=== PATIENT | male | born 1960 | race Caucasian/White ===

== ENCOUNTER 2016-06-24 09:08 | Inpatient (IN) | payer OTHER ==
[~2016-06-24] VITALS: Ht 185.4 cm; Wt 130.2 kg
[~2016-06-24 09:08] MED LIST: COLACE100 M1 PO; DILAUDID2 M1 PO; ELIQUIS2.5 MG PO; GLUCOPHAGE850 MG PO; IMITREX50 MG PO; LANTUS SOLOS100 U/ML SUBQ; LYRICA25 MG PO; METFORMIN HCL850 MG PO; METOCLOPRAMIDE10 M3 PO; MORPHINE SULFAT30 M1 PO; NEURONTIN100 M1 PO; NORCO 10/325 MG1 TAB PO; NOVOLIN N100 U/ML SUBQ; NOVOLOG100 U/ML SUBQ; OXYCONTIN CR10 MG PO; PHENOBARBITAL100 M1 PO; PREDNISONE10 MG PO; PROAIR HFA0.09 MG/Ac IH; REGLAN5 MG PO; XARELTO10 MG PO; XARELTO15 MG PO; ZITHROMAX250 MG PO
[2016-06-24 09:12] VITALS: BP 132/71
--- NOTE | 2016-06-24 09:15 | NUR ---
PT W/C TO BED 6.
--- NOTE | 2016-06-24 09:50 | NUR ---
55/M HERE FOR VOMITING X1 MONTH WITH DIARRHEA. C/O BACK AND ABD PAIN. BOWEL SOUNDS PRESENT. ABD APPEARS ROUND AND SOFT. URINE CUP PROVIDED FOR SAMPLE IF PT NEEDS TO VOID.
--- NOTE | 2016-06-24 09:57 | NUR ---
Patient being evaluated by physician at bedside.
--- NOTE | 2016-06-24 10:00 | NUR ---
55/M BIB SELF VIA MOTOR WHEELCHAIR FOR VOMITING X1 MONTH WITH DIARRHEA. C/O CHRONIC BACK AND SEVERE ABD PAIN. BOWEL SOUNDS FAINT BUT PRESENT. ABD ROUND, FIRM AND TENDER. SOB NOTED WHEN PAIN ARISES.
[2016-06-24] MEDS ORDERED: NACL 0.9% 1,000 ML IV SCH (10:05)
[2016-06-24] MEDS ORDERED: FAMOTIDINE 20 MG/2 ML VIAL IVP ONE (10:05)
[2016-06-24] MEDS ORDERED: ONDANSETRON 4 MG/2 ML VIAL IVP ONE (10:05)
[2016-06-24] MEDS ORDERED: MORPHINE SULFATE 2 MG/ML SYR IVP ONE (10:05)
--- NOTE | 2016-06-24 10:30 | NUR ---
LAB AT BEDSIDE.
--- NOTE | 2016-06-24 11:00 | NUR ---
PT TAKEN TO RADIOLOGY.
--- NOTE | 2016-06-24 11:05 | NUR ---
URINE CUP GIVEN TO PT FOR SAMPLE.
--- NOTE | 2016-06-24 11:08 | NUR ---
PT BACK FROM CT.
--- NOTE | 2016-06-24 11:19 | NUR ---
PT IN V-TACH [id number] AND CONVERTS BACK TO NSR. PT ASYMTOMATIC. PT CRYING IN PAIN AT THE TIME. DR. COLE MADE AWARE.
--- NOTE | 2016-06-24 11:24 | NUR ---
PT IN V-TACH X3SECS AND CONVERTS BACK TO NSR. PT ASYMTOMATIC. DR. COLE MADE AWARE.
--- NOTE | 2016-06-24 11:29 | NUR ---
PT IN V-TACH X3SECS AND CONVERTS BACK TO NSR. PT ASYMTOMATIC. DR. COLE MADE AWARE.
[2016-06-24] MEDS ORDERED: PHENYTOIN 1,000 MG in NACL 0.9% 100 ML IV ONE (12:05)
--- NOTE | 2016-06-24 12:20 | NUR ---
PT TRANSFERRED TO ED BED 4 FOR CLOSER OBSERVATION
[2016-06-24] MEDS ORDERED: PHENYTOIN 1,000 MG in NACL 0.9% 100 ML IV SCH (12:46)
[2016-06-24] MEDS ORDERED: PHENYTOIN 250 MG/5 ML VIAL IV ONE (12:47)
[2016-06-24] MEDS ORDERED: ACETAMINOPHEN 325 MG TAB PO PRN (13:10)
[2016-06-24] MEDS ORDERED: HYDROcodone/APAP 5/325 MG 1 TAB TAB PO PRN (13:10)
--- NOTE | 2016-06-24 13:16 | NUR ---
CALLED [facility]ST, SPOKE TO MT, STS RECEIVING RN RERE WITH CALL ME BACK WITHIN 5-10MINS.
--- NOTE | 2016-06-24 13:30 | NUR ---
PT BACK CLEAR. NO WOUNDS NOTED. Patient will be admitted to care of DR. ACOSTA. Admited to [facility]. Will go to room 116-A. Belongings list completed. Report to MAEVE JERNIGAN.
[2016-06-24] MEDS ORDERED: DEXTROSE 50% 50 ML SYR IVP PRN (13:50)
[2016-06-24 14:00] VITALS: BP 110/69
--- NOTE | 2016-06-24 14:00 | NUR ---
PT ADMITTED FROM ER, AWAKE ALERT AND ORIENTED X4. BREATHING EVENLY AND UNLABORED, WITH O2 AT 2L/MIN VIA NC. NO SIGNS OF ACUTE DISTRESS. SKIN IS WARM AND DRY. OFFLOAD TO PRESSURE AREAS. NO EPISODES OF ANY NAUSEA OR VOMITING NOTED AT THIS TIME. DENIES OF ANY BLADDER DISCOMFORT. ORIENTED TO HOSPITAL ENVIRONMENT. ALL NEEDS ATTENDED, SAFETY PRECAUTIONS MAINTAINED. CALL LIGHT WITHIN REACH.
[2016-06-24] MEDS: NACL 0.9% 1,000 ML IV SCH ×2 (14:31→18:59)
--- NOTE | 2016-06-24 15:42 | NUR ---
NEW ADMIT ORDERS RECEIVED. NOTED AND CARRIED OUT.
[2016-06-24] MEDS: BLOOD GLUCOSE MONITORING 1 DEV DEV FS SCH ×2 (16:05→20:16)
[2016-06-24] MEDS: SUMAtriptan 50 MG TAB PO SCH (16:07)
[2016-06-24] MEDS: METOCLOPRAMIDE 10 MG TAB PO SCH ×2 (16:07→20:15)
[2016-06-24] MEDS: INSULIN ASPART SLIDING SCALE 100 UNITS/ML VIAL SUBQ PRN ×2 (16:36→20:50)
[2016-06-24] MEDS: MORPHINE SULFATE 2 MG/ML SYR IVP PRN ×2 (16:44→22:19)
[2016-06-24] MEDS: HYDROcodone/APAP 10/325 MG 1 TAB TAB PO PRN ×2 (18:10→23:43)
[2016-06-24] MEDS: LORazepam 2 MG/ML VIAL IVP PRN ×2 (18:11→23:45)
--- NOTE | 2016-06-24 18:53 | NUR ---
PT ALERT AND RESPONSIVE, NO SIGNS OF ACUTE DISTRESS. ENDORSED TO ONCOMING DIRECTOR OF FIELD SALES NURSE FOR CONTINUITY OF CARE.
--- NOTE | 2016-06-24 19:15 | NUR ---
RECEIVED REPORT FROM AM NURSE. PATIENT IS SLEEPING AT THIS TIME. NO S/S OF RESPIRATORY DISTRESS/DISCOMFORT. ON TELE MONITORING, CHECKED, SR. SKIN IS INTACT. RIGHT BKA NOTED. IV SITE IS PATENT AND INTACT. SAFETY MEASURES CHECKED, CALL LIGHT WITHIN REACH. WILL CONTINUE TO MONITOR. Addendum: 06/26/16 at 0006 by Abdoul Li RN CORRECTION: FROM RIGHT BKA TO RIGHT AKA.
[2016-06-24 20:00] VITALS: BP 117/68
[2016-06-24 22:16] VITALS: BP 113/67
--- NOTE | 2016-06-24 22:25 | NUR ---
PATIENT COMPLAINED PAIN OF 8/10. V/S CHECKED. ADMINISTERED PAIN MEDS PER MD ORDERED.
[2016-06-25] VITALS (8 sets, daily range): BP systolic 114–140; BP diastolic 60–94
--- NOTE | 2016-06-25 00:31 | NUR ---
PATIENT IS SLEEPING AT THIS TIME. NO S/S OF RESPIRATORY DISTRESS/DISCOMFORT NOTED.
[2016-06-25] MEDS: MORPHINE SULFATE 2 MG/ML SYR IVP PRN ×2 (02:39→06:52)
--- NOTE | 2016-06-25 02:39 | NUR ---
PATIENT COMPLAINED PAIN 03/09. V/S CHECKED. ADMINISTERED MEDICATION PER MD ORDERED.
[2016-06-25] MEDS: ONDANSETRON 4 MG/2 ML VIAL IVP PRN (02:44)
--- NOTE | 2016-06-25 04:00 | NUR ---
V/S CHECKED AND STABLE. NO S/S OF RESPIRATORY DISTRESS/DISCOMFORT NOTED.
[2016-06-25] MEDS: NACL 0.9% 1,000 ML IV SCH ×4 (04:30→18:34)
[2016-06-25] MEDS: BLOOD GLUCOSE MONITORING 1 DEV DEV FS SCH ×4 (05:53→20:17)
[2016-06-25] MEDS: INSULIN ASPART SLIDING SCALE 100 UNITS/ML VIAL SUBQ PRN ×3 (05:57→20:22)
--- NOTE | 2016-06-25 06:03 | NUR ---
BLOOD SUGAR CHECKED. BSL= 259, INSULIN COVERAGE OF 6 UNITS WAS GIVEN.
--- NOTE | 2016-06-25 06:52 | NUR ---
V/S CHECKED, BP= 119/77, PULSE= 102, R= 18, T= 97.8, SATO2= 98%.
--- NOTE | 2016-06-25 06:58 | NUR ---
PATIENT COMPLAINED OF PAIN 01/07. ADMINISTERED PAIN MED. PER MD ORDERED.
--- NOTE | 2016-06-25 07:24 | NUR ---
ENDORSED REPORT TO AM NURSE FOR CONTINUITY OF CARE. PATIENT IS IN STABLE CONDITION.
--- NOTE | 2016-06-25 07:25 | NUR ---
RECEIVED REPORT FROM NIGHT NURSE MAEVE COLINDRES. PATIENT APPEARED TO BE CALM, AWAKE AND RESTING WELL IN BED. AAOX4 WITH NO SIGN OF DISTRESS NOTED. INITIAL ASSESSMENT DONE. SKIN INTACT. PATIENT REPORTED TO HAVING MILD ABD AND BACK PAIN, AND WILL REQUEST PAIN MEDICATION WHEN NEEDED. PATIENT HAS RIGHT AKA. PATIENT ALSO HAS IV 22G TO LEFT UPPER ARM INFUSING WELL WITH IVF. PATIENT DENIED ANY CHEST PAIN OR N/V. PLAN OF CARE, PAIN MANAGEMENT AND MEDICATION REGIMENTS DISCUSSED. PATIENT VERBALIZED UNDERSTANDING. SAFETY MEASURES GIVEN. CALL LIGHT WITHIN REACH. WILL CONTINUE TO MONITOR.
[2016-06-25] MEDS: HYDROcodone/APAP 10/325 MG 1 TAB TAB PO PRN ×2 (08:35→17:51)
[2016-06-25] MEDS: METOCLOPRAMIDE 10 MG TAB PO SCH ×4 (08:35→20:17)
--- NOTE | 2016-06-25 08:35 | NUR ---
DUE MEDICATION WITH TEACHING GIVEN WITH SIP OF WATER. PATIENT TOLERATED WELL AND VERBALIZED UNDERSTANDING. ALL NEEDS ARE MET. NO DISTRESS NOTED AT THIS TIME. CALL LIGHT WITHIN REACH. WILL CONTINUE TO MONITOR.
[2016-06-25] MEDS: PHENYTOIN 100 MG CAPER PO SCH ×3 (08:36→16:40)
[2016-06-25] MEDS: SUMAtriptan 50 MG TAB PO SCH ×3 (08:36→16:41)
[2016-06-25] MEDS ORDERED: RIVAROXABAN 10 MG TAB PO SCH (09:00)
--- NOTE | 2016-06-25 10:02 | NUR ---
PATIENT HAS BEEN SCREENED AND CATEGORIZED HIGH NUTRITION RISK. PATIENT WILL BE SEEN WITHIN 1-2 DAYS OF ADMISSION. 06/25/16-06/26/[address]
--- NOTE | 2016-06-25 10:14 | NUR ---
IV TO LEFT UPPER ARM INFILTRATED. ATTEMPTED TO PUT IN IV FOR PATIENT BUT UNABLE TO START ONE. WILL ATTEMPTED LATER.
--- NOTE | 2016-06-25 12:00 | NUR ---
INSULIN NOT GIVEN DUE TO PATIENT WAS NOT EATING.
--- NOTE | 2016-06-25 12:38 | NUR ---
DUE MEDICATIONS GIVEN WITH TEACHING. PATIENT TOLERATED WELL AND VERBALIZED UNDERSTANDING. ALL NEEDS ARE MET. CALL LIGHT WITHIN REACH. WILL CONTINUE TO MONITOR.
[2016-06-25] MEDS: HYDROmorphone 1 MG/ML AMP IVP PRN ×2 (13:19→19:41)
[2016-06-25] MEDS: metroNIDAZOLE 250 MG TAB PO SCH ×2 (13:19→16:41)
--- NOTE | 2016-06-25 13:25 | NUR ---
NEW IV 22G INSERTED TO LEFT AC. PATIENT TOLERATED WELL. IVP DILAUDID 0.5MG GIVEN FOR BACK PAIN /. ALL NEEDS ARE MET. NO SIGN OF DISTRESS NOTED. FAMILY MEMBERS AT BEDSIDE. CALL LIGHT WITHIN REACH. WILL CONTINUE TO MONITOR.
--- NOTE | 2016-06-25 13:46 | NUR ---
06/25/16 RD INITIAL ASSESSMENT COMPLETED PLEASE REFER TO NUTRITION ASSESSMENT UNDER CARE ACTIVITY FOR ESTIMATED NUTRITIONAL NEEDS. RD RECOMMENDATIONS: 1. CONTINUE NPO DIET TOLERATED 2. WHEN APPROPRIATE CONSIDER ADVANCED DIET TOLERATED TO [address] WILL F/U 3-5 DAYS; MODERATE RISK. ASMITA ALBERTS RD
--- NOTE | 2016-06-25 15:01 | NUR ---
PATIENT RESTING WELL IN BED. NO SIGN OF DISTRESS NOTED AT THIS TIME. ALL NEEDS ARE MET. NO C/O PAIN. FAMILY MEMBER AT BEDSIDE. CALL LIGHT WITHIN REACH. WILL CONTINUE TO MONITOR.
--- NOTE | 2016-06-25 17:27 | NUR ---
ENDORSED PATIENT FOR CONTINUITY OF CARE TO NURSE PRATIMA MCFARLANE. PATIENT RESTING WELL IN BED WITH NO SIGN OF DISTRESS NOTED.
--- NOTE | 2016-06-25 17:51 | NUR ---
RESUMED PATIENT CARE. NORCO PO GIVEN FOR C/O BACK PAIN, SEE PAIN ASSESSMENT. WILL CONTINUE TO MONITOR.
--- NOTE | 2016-06-25 19:26 | NUR ---
CONDITION STABLE, ENDORSED PLAN OF CARE TO EXHIBIT CARPENTER.
--- NOTE | 2016-06-25 19:30 | NUR ---
RECEIVED REPORT FROM AM NURSE. PATIENT IS AAOX4, ON TELE MONITOR, HAS COMPLAIN OF PAIN, WILL ADMINISTER PAIN MEDS PER MD ORDERED. NO S/S OF RESPIRATORY DISTRESS/DISCOMFORT NOTED. IV SITE IS PATENT AND INTACT. NOTED A BANDAGE TO THE LEFT LOWER EXTREMITY, ELEVATED WITH PILLOW. PLAN OF CARE DISCUSSED, VERBALIZED UNDERSTANDING. SAFETY MEASURES CHECKED, CALL LIGHT WITHIN REACH. WILL CONTINUE TO MONITOR.
--- NOTE | 2016-06-25 20:17 | NUR ---
EDUCATION TO MEDS WAS GIVEN, BENEFITS AND S/E, VERBALIZED AGREEMENT. DUE MEDS GIVEN. PATIENT TOLERATED WELL.
[2016-06-25] MEDS: LORazepam 2 MG/ML VIAL IVP PRN (23:56)
--- NOTE | 2016-06-26 00:30 | NUR ---
PATIENT IS AGITATED AND ANXIOUS, V/S CHECKED AND STABLE. ADMINISTERED ATIVAN PER MD ORDERED.
--- NOTE | 2016-06-26 01:27 | NUR ---
PATIENT IS SLEEPING. CALL LIGHT WITHIN REACH. NO S/S OF RESPIRATORY DISTRESS/DISCOMFORT NOTED.
[2016-06-26] MEDS: HYDROmorphone 1 MG/ML AMP IVP PRN ×2 (02:10→08:19)
--- NOTE | 2016-06-26 02:10 | NUR ---
PATIENT COMPLAINED OF PAIN. V/S CHECKED. B/P= 136/81, P= 91. MEDICATED WITH PAIN MED PE ORDERED.
[2016-06-26 04:00] VITALS: BP 118/52
--- NOTE | 2016-06-26 04:09 | NUR ---
PT IS SLEEPING. EASILY AWAKEN BY HIS NAME. V/S CHECKED AND STABLE. NO S/S OF RESPIRATORY DISTRESS/DISCOMFORT.
[2016-06-26] MEDS: HYDROcodone/APAP 10/325 MG 1 TAB TAB PO PRN (05:52)
[2016-06-26] MEDS: ONDANSETRON 4 MG/2 ML VIAL IVP PRN ×2 (05:52→18:08)
--- NOTE | 2016-06-26 05:52 | NUR ---
PT COMPLAINED PAIN, V/S AND STABLE. ADMINISTERED PAIN MED PER MD ORDERED.
[2016-06-26] MEDS: BLOOD GLUCOSE MONITORING 1 DEV DEV FS SCH ×4 (05:57→21:16)
[2016-06-26] MEDS: INSULIN ASPART SLIDING SCALE 100 UNITS/ML VIAL SUBQ PRN ×4 (06:04→21:23)
--- NOTE | 2016-06-26 07:17 | NUR ---
ENDORSED PATIENT TO AM NURSE FOR CONTINUITY OF CARE. PATIENT IS IN STABLE CONDITION.
--- NOTE | 2016-06-26 07:30 | NUR ---
RECEIVED REPORT FROM THE COFFEE SHOP AIDE NURSE FROM THE CONTINUITY OF CARE. PATIENT IS AWAKE, ALERT, ORIENTEDX4. IV ON THE RIGHT UPPER ARM, INTACT AND PATENT. IV FLUID INFUSING WELL. VITAL TAKEN AND WITHIN THE NORMAL LIMIT. ON ROOM AIR, NO SOB. COMPLAINED OF NECK, BACK, AND ABD PAIN. MEDICATION WILL BE PROVIDED. RIGHT LEG ABOVE THE NIGHT AMPUTATION OTHER CASSIDY SKIN INTACT. SAFETY MEASURE CHECKED AND WILL CONTINUE TO MONITOR. CALL LIGHT WITHIN REACH.
[2016-06-26 08:00] VITALS: BP 123/69
[2016-06-26] MEDS: PHENYTOIN 100 MG CAPER PO SCH ×3 (08:18→16:46)
[2016-06-26] MEDS: metroNIDAZOLE 250 MG TAB PO SCH ×3 (08:18→16:48)
[2016-06-26] MEDS: METOCLOPRAMIDE 10 MG TAB PO SCH ×4 (08:18→20:36)
[2016-06-26] MEDS ORDERED: HYDROmorphone 1 MG/ML AMP IVP PRN ×2 (08:45→14:00)
--- NOTE | 2016-06-26 09:00 | NUR ---
DUE MED GIVEN, PT TOLERATED WELL. CALL LIGHT WITHIN REACH.
[2016-06-26] MEDS: SUMAtriptan 50 MG TAB PO SCH ×3 (09:06→16:48)
[2016-06-26] MEDS: NACL 0.9% 1,000 ML IV SCH (09:14)
--- NOTE | 2016-06-26 10:00 | NUR ---
PATIENT IS ASLEEP IN BED. NO S/S OF DISTRESS. CALL LIGHT WITHIN REACH.
[2016-06-26] MEDS ORDERED: BISACODYL 10 MG SUPP RC SCH (10:30)
--- NOTE | 2016-06-26 11:04 | NUR ---
BISACODYL 10MG SUPPOSITORY GIVEN TO PATIENT FOR CONSTIPATION. CALL LIGHT WITHIN REACH.
[2016-06-26 11:58] VITALS: BP 129/74
[2016-06-26] MEDS: HYDROcodone/APAP 10/325 MG 1 TAB TAB PO SCH ×3 (12:29→23:10)
--- NOTE | 2016-06-26 12:31 | NUR ---
DUE MEDS GIVEN, PT TOLERATED WELL. FAMILY AT BEDSIDE. CALL LIGHT WITHIN REACH.
--- NOTE | 2016-06-26 13:00 | NUR ---
DUE MEDS GIVEN, PATIENT TOLERATED WELL. FAMILY AT BEDSIDE. CALL LIGHT WITHIN REACH.
[2016-06-26] MEDS: MUPIROCIN 2% OINT 22 GM TUBE TP SCH (13:29)
[2016-06-26] MEDS: CHLORHEXADINE GLUC 2% CLOTH TP SCH (13:29)
--- NOTE | 2016-06-26 13:50 | NUR ---
ASSISTED PATIENT INTO A BEDPAN, PATIENT STATE HE NEED TO MAKE A BOWEL MOVEMENT. AFTER, TAKEN THE BEDPAN OUT, TOLD PATIENT HE DID NOT MADE ANY BM, SHOWED HIM THE EMPTY BEDPAN. PATIENT STATE "ITS BECAUSE I DON'T HAVE ANYTHING INSIDE". WILL CONTINUE TO MONITOR. FAMILY AT BEDSIDE. CALL LIGHT WITHIN REACH.
[2016-06-26 16:00] VITALS: BP 124/75
--- NOTE | 2016-06-26 16:06 | NUR ---
VITALS TAKEN AND WITHIN THE NORMAL LIMIT. PATIENT IS ANGRY SAYING IS NOT GOOD HE KEPT ASKING HIM TO MAKE BM BUT HE CAN'T BECAUSE HE IS UNABLE TO KEEP HIS FOOD DOWN. EDUCATE HIM THAT WANTED HIM TO HAVE BM TO TEST HIS STOOL. ENCOURAGE PATIENT TO TRY LATER AND TRY TO EAT HIS DINNER. WILL CONTINUE TO MONITOR. CALL LIGHT WITHIN REACH.
--- NOTE | 2016-06-26 17:00 | NUR ---
DUE MEDS GIVE, PATIENT CONTINUE TO COMPLAINED OF PAIN. ARGUED AND COMPLAINED ABOUT DR'S ORDER TO DISCONTINUE HIS DILAUDID. EXPLAINED TO PATIENT THAT HE HAS ORDER FOR NORCO Q6HR AND IT WILL BE GIVEN WHEN DUE. WILL CONTINUE TO MONITOR. CALL LIGHT WITHIN REACH.
--- NOTE | 2016-06-26 18:15 | NUR ---
PATIENT COMPLAINED OF PAIN 01/07. NORCO GIVEN ORDERED. ZOFRAN ALSO GIVEN, PATIENT COMPLAINED OF NAUSEA. WILL CONTINUE TO MONITOR. CALL LIGHT WITHIN REACH.
--- NOTE | 2016-06-26 19:10 | NUR ---
ASSISTED PATIENT INTO A BEDPAN. COLLECTED STOOL FOR OCCULT BLOOD. STOOL IS BROWN AND SOLID. SMALL AMOUNT. MILD ODOR.
--- NOTE | 2016-06-26 19:29 | NUR ---
REPORT GIVEN TO STEWARD/STEWARDESS NIGHT NURSE VJ RN AT BEDSIDE FOR CONTINUITY OF CARE. PATIENT IS AWAKE, IN STABLE CONDITION. ALL NEED MET AT THIS TIME. FRIENDS AT BEDSIDE. CALL LIGHT WITHIN REACH.
--- NOTE | 2016-06-26 19:30 | NUR ---
RECEIVED REPORT FROM DAY SHIFT RN FOR CONTINUITY OF CARE. PATIENT IS A&OX4, DISCUSSED PLAN OF CARE WITH PATIENT, VERBALIZED UNDERSTANDING. NO S/S OF RESPIRATORY DISTRESS NOTED ON ROOM AIR. PATIENT STATES HE WANTS HIS IV PAIN MEDICATION, WILL FOLLOW UP WITH MD. SHIFT ASSESSMENT DONE, VS TAKEN, STABLE AT THIS TIME. IV TO RT UPPER ARM 22 GAUGE PATENT AND INFUSING FLUIDS WELL. PT HAS RT ABOVE KNEE AMPUTATION. SAFETY/FALL/CONTACT PRECAUTIONS ENFORCED. FAMILY MEMBERS AT BEDSIDE. CALL LIGHT PLACED WITHIN REACH.
[2016-06-26 19:53] VITALS: BP 147/85
--- NOTE | 2016-06-26 21:09 | NUR ---
SPOKE WITH ON REGARDING PT PAIN MEDICATION AND C/O GERD. STATED CURRENT ORDERS WILL BE FOLLOWED REGARDING NORCO AND HE WILL PUT ORDER FOR TORADOL ONCE. WILL FOLLOW OUT ORDERS GIVEN. Addendum: 06/27/16 at 0238 by Renetta Barrientos RN DR. ESCOBAR*
[2016-06-26] MEDS ORDERED: PANTOPRAZOLE 40 MG TABEC PO SCH (21:20)
--- NOTE | 2016-06-26 21:23 | NUR ---
DUE MEDICATIONS ADMINISTERED, TOLERATED WELL. BLOOD SUGAR 242, ADMINISTERED INSULIN PER MD ORDER. EDUCATED PT REGARDING DOCTORS ORDERS, PT AGREED.
[2016-06-26] MEDS ORDERED: KETOROLAC 30 MG/ML VIAL IVP SCH (21:25)
--- NOTE | 2016-06-26 23:10 | NUR ---
PT C/O 01/07 BACK PAIN, ADMINISTERED SCHEDULED NORCO AND PRN REFLUX MEDICATION. CALL LIGHT PLACED WITHIN REACH.
[2016-06-27] VITALS: BP 117/61
--- NOTE | 2016-06-27 00:05 | NUR ---
VS TAKEN, STABLE. PATIENT STATES HE IS COMFORTABLE AND WANTS TO SLEEP. CALL LIGHT PLACED WITHIN REACH. URINAL HAD 400 ML THEODORA COLORED URINE.
--- NOTE | 2016-06-27 02:14 | NUR ---
PT IS AWAKE ON HIS PHONE. NO S/S OF DISTRESS NOTED. CALL LIGHT WITHIN REACH.
[2016-06-27 04:00] VITALS: BP 112/64
--- NOTE | 2016-06-27 04:24 | NUR ---
VS TAKEN, STABLE. PATIENT IS NOW ASLEEP AT THIS TIME. NO S/S OF DISTRESS OR DISCOMFORT.
[2016-06-27] MEDS: HYDROcodone/APAP 10/325 MG 1 TAB TAB PO SCH ×4 (05:47→23:34)
[2016-06-27] MEDS: BLOOD GLUCOSE MONITORING 1 DEV DEV FS SCH ×4 (06:09→20:44)
[2016-06-27] MEDS: INSULIN ASPART SLIDING SCALE 100 UNITS/ML VIAL SUBQ PRN ×4 (06:24→20:47)
[2016-06-27] MEDS: METOCLOPRAMIDE 10 MG TAB PO SCH ×4 (06:33→20:41)
--- NOTE | 2016-06-27 07:22 | NUR ---
ENDORSED PATIENT TO DAYSHIFT RN FOR CONTINUITY OF CARE. PATIENT IS STABLE.
--- NOTE | 2016-06-27 07:30 | NUR ---
RECEIVED PT RESTING QUIETLY IN BED; AAOX4, NO COMPLAINTS OF PAIN OR S/S ACUTE DISTRESS AT THIS TIME. HEATING PAD TO BACK SIDE FOR PAIN. IVF INFUSING WELL TO RIGHT UPPER ARM, SITE ASYMPTOMATIC. ROUTINE/PLAN OF CARE DISCUSSED AND REVIEWED, PT VERBALIZES UNDERSTANDING AND COMPLIANCE. SAFETY PRECAUTIONS OBSERVED AND MAINTAINED; ENCOURAGED PT TO CALL FOR ASSISTANCE NEEDED.
[2016-06-27 08:00] VITALS: BP 120/58
[2016-06-27] MEDS: metroNIDAZOLE 250 MG TAB PO SCH ×3 (09:29→17:23)
[2016-06-27] MEDS: SUMAtriptan 50 MG TAB PO SCH ×3 (09:30→17:24)
[2016-06-27] MEDS: PANTOPRAZOLE 40 MG TABEC PO SCH ×2 (09:30→20:41)
[2016-06-27] MEDS: PHENYTOIN 100 MG CAPER PO SCH ×3 (09:31→17:23)
--- NOTE | 2016-06-27 09:34 | NUR ---
VSS. ADMINISTERED ROUTINE MEDS ORDERED WITH EDUCATION, PT TOLERATED WELL. WILL CONTINUE TO MONITOR.
[2016-06-27] MEDS: MUPIROCIN 2% OINT 22 GM TUBE TP SCH (11:51)
[2016-06-27] MEDS: CHLORHEXADINE GLUC 2% CLOTH TP SCH (11:51)
[2016-06-27 12:00] VITALS: BP 120/61
--- NOTE | 2016-06-27 12:21 | NUR ---
VSS. ADMINISTERED SCHEDULED MEDS ORDERED WITH EDUCATION, PT TOLERATED WELL. NO S/S DISTRESS. WILL CONTINUE TO MONITOR.
[2016-06-27 16:00] VITALS: BP 120/61
--- NOTE | 2016-06-27 16:00 | NUR ---
VSS. NO S/S DISTRESS.
--- NOTE | 2016-06-27 18:30 | NUR ---
IV SITE TO RIGHT UPPER ARM LEAKING, DC'D WITH CANNULA INTACT; UNABLE TO SUCCESSFULLY REINSERT IV CATH AT THIS TIME. PT TOLERATED WELL. WILL ATTEMPT AFTER PT FINISHES DINNER TRAY.
[2016-06-27] MEDS: NACL 0.9% 1,000 ML IV SCH (18:31)
--- NOTE | 2016-06-27 19:30 | NUR ---
RECEIVED REPORT FROM MAEVE ANDUJAR, AT BEDSIDE. INITIAL ASSESSMENT AND BODY CHECK DONE. PATIENT AAO X 4, ABLE TO FOLLOW COMMAND AND MAKE NEEDS KNOWN AND AMBULATORY WITH TEXTILE FINISHER/WHEELCHAIR AND HAS RIGHT AKA. PATIENT CURRENTLY SITTING UP ON THE BED AND TALKING ON CELL PHONE. NO S/S OF DISTRESS OR SOB NOTED. SKIN WARM/DRY TO TOUCH WITH NORMAL COLOR. BANDAGE ON LEFT LEG REMAINS CLEAN/DRY/INTACT. NO IV ACCESS AT THIS TIME. DISCUSSED PLAN OF CARE, PAIN MANAGEMENT AND MEDICATION REGIMEN WITH PATIENT AND PATIENT VERBALIZED UNDERSTANDING. PLACED PATIENT ON SAFETY/FALL PRECAUTIONS AND CONTACT ISOLATION. WILL CONTINUE TO MONITOR. CALL LIGHT LEFT WITHIN REACH.
[2016-06-27 19:48] VITALS: BP 120/74
[2016-06-27] MEDS: KETOROLAC 30 MG/ML VIAL IVP PRN (21:11)
--- NOTE | 2016-06-27 21:18 | NUR ---
INSERTED THE NEW IV LINE ON RT UPPER CHEST G # 24 BY CHARGE NURSE, JACKIE. THEN, ADMINISTERED PRN PAIN MEDICATION MD'S ORDERED AND PATIENT TOLERATED WELL. GAVE HS SNACK AND ICE-WATER PER REQUEST. KEPT PATIENT IN COMFORTABLE POSITION/WARM. ALL NEEDS ARE ATTENDED AND WILL CONTINUE TO MONITOR.
--- NOTE | 2016-06-27 22:43 | NUR ---
ROUNDS MADE, SEEN PATIENT ASLEEP QUIETLY IN BED WITH EVEN AND UNLABORED RESPIRATORY RATE. NO CHANGED IN CONDITION NOTED. WILL CONTINUE TO MONITOR.
[2016-06-28] VITALS: BP 108/60
--- NOTE | 2016-06-28 01:54 | NUR ---
PATIENT RESTED COMFORTABLY IN BED AND NO CHANGE IN CONDITION NOTED. WILL CONTINUE TO MONITOR.
[2016-06-28 03:46] VITALS: BP 123/71
--- NOTE | 2016-06-28 04:28 | NUR ---
PATIENT IS CLINICALLY STABLE WITH UNCHANGED V/S. WILL CONTINUE TO MONITOR.
[2016-06-28] MEDS: HYDROcodone/APAP 10/325 MG 1 TAB TAB PO SCH (05:01)
[2016-06-28] MEDS: KETOROLAC 30 MG/ML VIAL IVP PRN (05:01)
[2016-06-28] MEDS: BLOOD GLUCOSE MONITORING 1 DEV DEV FS SCH (06:07)
[2016-06-28] MEDS: INSULIN ASPART SLIDING SCALE 100 UNITS/ML VIAL SUBQ PRN (06:08)
[2016-06-28] MEDS: METOCLOPRAMIDE 10 MG TAB PO SCH (06:37)
--- NOTE | 2016-06-28 07:16 | NUR ---
ASSUMED CONTINUITY OF CARE. NO SIGNS AND SYMPTOMS OF ACUTE DISTRESS NOTICED. INITIAL ASSESSMENT DONE. EDEMA ON LLE, NOTED. ELEVATED WITH PILLOWS. EXPLAINED DIAGNOSIS, PLAN OF CARE, PAIN MANAGEMENT TEACHING, CONTACT ISOLATION PRECAUTION, USE OF CALL LIGHT/BED/TV/BATHROOM. VERBALIZED UNDERSTANDING. FALL PRECAUTION APPLIED. CALL LIGHT WITHIN REACH.
--- NOTE | 2016-06-28 07:25 | NUR ---
PATIENT RESTED WELL THROUGHOUT THE SHIFT AND REMAINED IN STABLE CONDITION WITHOUT S/S OF DISTRESS NOTED. ENDORSED PLAN OF CARE TO RON PAUL, AT BEDSIDE.
--- NOTE | 2016-06-28 07:26 | NUR ---
Patient's Plan of Care was discussed and reviewed with FELLING MACHINE OPERATOR: HUMBERTO Boo
[2016-06-28 08:00] VITALS: BP 117/64
[2016-06-28] MEDS: PHENYTOIN 100 MG CAPER PO SCH (08:48)
[2016-06-28] MEDS: PANTOPRAZOLE 40 MG TABEC PO SCH (08:48)
[2016-06-28] MEDS: metroNIDAZOLE 250 MG TAB PO SCH (08:48)
[2016-06-28] MEDS: SUMAtriptan 50 MG TAB PO SCH (08:49)
[2016-06-28] MEDS ORDERED: COLACE100 MG PO (09:15)
[2016-06-28] MEDS ORDERED: BACTROBAN 2%20 MG/GM TP (09:15)
[2016-06-28] MEDS ORDERED: DILANTIN100 M1 PO (09:15)
[2016-06-28] MEDS ORDERED: APLICARE ANTIS118 M2 TP (09:15)
[2016-06-28] MEDS ORDERED: GOOD SENSE OMEP20 MG PO (09:15)
[2016-06-28] MEDS ORDERED: NORCO 325 MG-51 TAB PO (09:15)
[2016-06-28] MEDS ORDERED: RIVAROXABAN 10 MG TAB PO SCH (10:00)
[2016-06-28] MEDS ORDERED: XARELTO20 MG PO (10:29)
[2016-06-28] MEDS ORDERED: FLORASTOR250 MG PO (10:36)
[2016-06-28] MEDS ORDERED: FLAGYL250 MG PO (10:36)
--- NOTE | 2016-06-28 10:55 | NUR ---
EXPLAINED DIAGNOSIS, MD D/C ORDER, D/C INSTRUCTIONS AND TEACHINGS, PAIN MANAGEMENT TEACHING, MD D/C PRESCRIPTIONS LIST EDUCATION, MD FOLLOW-UP, DM EDUCATION. VERBALIZED UNDERSTANDING.
--- NOTE | 2016-06-28 11:25 | NUR ---
D/C VIA PT. OWN MOTORIZED WHEELCHAIR. AWAKE, ALERT, AND ORIENTED X4. SPEECH CLEAR. NO C/O PAIN. NO SOB, NOTED. IN STABLE CONDITION. PT. REFUSED TO CALL FAMILY FOR PT. TRANSPORTATION. PT. STATES "I'M JUST LIVING ONE BLOCK AWAY FROM HERE. I CAN TAKE CARE OF MYSELF." INFORMED CHARGE NURSE LAVONNE LINCOLN.
[2016-10-30] MEDS ORDERED: DILANTIN100 MG PO (14:07)
[2016-10-30] MEDS ORDERED: ATORVASTATIN CA20 MG PO (14:07)
[2016-10-30] MEDS ORDERED: ASPIRIN325 M2 PO (14:07)
[2016-10-30] MEDS ORDERED: CULTURELLE10 Billion PO (14:07)
[2016-10-30] MEDS ORDERED: FLAGYL250 M1 PO (14:07)
[2016-10-30] MEDS ORDERED: XARELTO20 MG PO (14:09)
== END 2016-06-28 11:25 | disposition home or self-care (01) | DRG 391 ==
LOC: MED 09:08 → MTU 12:10
PROVIDERS: ADMIT Family Medicine; ATTEND Family Medicine
DX: A08.4 Viral intestinal infection, unspecified (principal); E43 Unspecified severe protein-calorie malnutrition; N17.0 Acute kidney failure with tubular necrosis; E11.65 Type 2 diabetes mellitus with hyperglycemia; E11.51 Type 2 diabetes mellitus with diabetic peripheral angiopathy without gangrene; E11.40 Type 2 diabetes mellitus with diabetic neuropathy, unspecified; E66.01 Morbid (severe) obesity due to excess calories; K44.9 Diaphragmatic hernia without obstruction or gangrene; D63.8 Anemia in other chronic diseases classified elsewhere; G40.909 Epilepsy, unspecified, not intractable, without status epilepticus; G89.4 Chronic pain syndrome; J45.909 Unspecified asthma, uncomplicated; K76.0 Fatty (change of) liver, not elsewhere classified; I10 Essential (primary) hypertension; E83.51 Hypocalcemia; N13.5 Crossing vessel and stricture of ureter without hydronephrosis; Z91.14 Patient's other noncompliance with medication regimen; Z98.890 Other specified postprocedural states; Z88.1 Allergy status to other antibiotic agents; Z88.0 Allergy status to penicillin; Z68.38 Body mass index [BMI] 38.0-38.9, adult; Z89.611 Acquired absence of right leg above knee; Z71.3 Dietary counseling and surveillance; Z79.01 Long term (current) use of anticoagulants; Z79.899 Other long term (current) drug therapy; Z86.718 Personal history of other venous thrombosis and embolism; Z86.711 Personal history of pulmonary embolism

== ENCOUNTER 2016-10-19 17:19 | Emergency (ER) | payer OTHER ==
[~2016-10-19] VITALS: Ht 185.4 cm; Wt 122.0 kg
[~2016-10-19 17:19] MED LIST changes: +ACET-2869 PO; +BACTO TP; +CHLO118S2 TP; -COLACE100 M1 PO; -DILAUDID2 M1 PO; +DOCU-264 PO; -ELIQUIS2.5 MG PO; -GLUCOPHAGE850 MG PO; +IMI50 PO; -IMITREX50 MG PO; +INSU100S22 SUBQ; +INSU100S45 SUBQ; -LANTUS SOLOS100 U/ML SUBQ; -LYRICA25 MG PO; -METFORMIN HCL850 MG PO; +METO10TA10 PO; -METOCLOPRAMIDE10 M3 PO; +METR250T2 PO; -MORPHINE SULFAT30 M1 PO; -NEURONTIN100 M1 PO; -NORCO 10/325 MG1 TAB PO; -NOVOLIN N100 U/ML SUBQ; -NOVOLOG100 U/ML SUBQ; +OMEP20TC24 PO; -OXYCONTIN CR10 MG PO; +PHEN100C4 PO; -PHENOBARBITAL100 M1 PO; -PREDNISONE10 MG PO; -PROAIR HFA0.09 MG/Ac IH; -REGLAN5 MG PO; +RIVA20TA PO; +SACC250C4 PO; -XARELTO10 MG PO; -XARELTO15 MG PO; -ZITHROMAX250 MG PO
[2016-10-19 17:56] VITALS: BP 128/88
[2016-10-19 18:58] LABS: ALBUMIN 3.5 g/dL (3.4-5.0); ANION GAP 11.2 (8-16); CALCIUM 9.1 mg/dL (8.5-10.1); CARBON DIOXIDE 28.2 mmol/L (21-32); POTASSIUM 4.4 mmol/L (3.5-5.1); TOTAL BILIRUBIN 0.4 mg/dL (0.0-1.0); TOTAL PROTEIN, SERUM 8.4 g/dL (6.4-8.2)
[2016-10-19 19:14] LABS: PROTHROMBIN TIME 9.9 secs (10.8-13.4)
[2016-10-19 19:22] LABS: PARTIAL THROMBOPLASTIN TIME 19.2 secs (22-35.6)
[2016-10-19 19:30] LABS: BASOPHILS # (AUTO) 0.1 K/uL (0.00-0.22); BASOPHILS % (AUTO) 0.8 % (0.0-2.0); EOSINOPHILS # (AUTO) 0.1 K/uL (0-0.4); EOSINOPHILS % (AUTO) 1.3 % (0.0-4.0); HEMATOCRIT 41.5 % (36-52); HEMOGLOBIN 13.5 g/dL (12.0-18.0); LYMPHOCYTES # (AUTO) 1.9 K/uL (2.0-11.5); LYMPHOCYTES % (AUTO) 25.4 % (20.5-51.1); MEAN CORPUSCULAR HEMOGLOBIN 31 pg (27-31); MEAN CORPUSCULAR HGB CONC 33 g/dL (33-37); MEAN CORPUSCULAR VOLUME 96 fL (80-94); MONOCYTES # (AUTO) 0.7 K/uL (0.8-1.0); MONOCYTES % (AUTO) 8.7 % (1.7-9.3); NEUTROPHILS # (AUTO) 4.8 K/uL (1.8-7.7); NEUTROPHILS % (AUTO) 63.8 % (42.2-75.2); PLATELET COUNT (AUTO) 232 K/uL (140-450); RED BLOOD CELL COUNT(AUTO) 4.32 MIL/uL (4.20-6.10); RED CELL DISTRIBUTION WIDTH 14.5 % (11.6-13.7); WHITE BLOOD COUNT (AUTO) 7.6 K/uL (4.8-10.8)
--- NOTE | 2016-10-19 20:42 | NUR ---
PATIENT LEFT WITHOUT BEING SEEN BY DR. HAY. NO FURTHER CARE PROVIDED FOR PATIENT.
== END 2016-10-19 20:42 | disposition left against medical advice (07) ==
LOC: MED 17:19
DX: R55 Syncope and collapse (principal); Z53.21 Procedure and treatment not carried out due to patient leaving prior to being seen by health care provider
CPT/HCPCS: 36415; 71010; 80053; 83880; 84484; 85025; 85610; 85730; 93005

== ENCOUNTER 2016-10-28 17:58 | Inpatient (IN) | payer OTHER ==
[~2016-10-28] VITALS: Ht 185.4 cm; Wt 121.6 kg
[2016-10-28 18:06] VITALS: BP 131/74
--- NOTE | 2016-10-28 18:18 | NUR ---
Patient transferred to bed 3 via personal wheelchair, accompanied by family. RN evaluating patient at bedside.
--- NOTE | 2016-10-28 18:45 | NUR ---
56/M C/O WOKE UP WITH STS LEFT ARM AND LEFT LEG PARALYSIS WITH SPEECH SLURRING AND FACIAL SWELLING. STS NO SWELLING, NUMBNESS OR PARALYSIS AT THIS TIME. STATES PAIN 8/10. SMILE SYMMETRICAL, LANDFILL ATTENDANT EQUAL. LUNGS CLEAR BILAT. HR EVEN AND REGULAR. AAOX4. VSS. NO SIGNS OF DISTRSS.
[2016-10-28 19:18] LABS: BASOPHILS # (AUTO) 0.1 K/uL (0.00-0.22); BASOPHILS % (AUTO) 1.1 % (0.0-2.0); EOSINOPHILS # (AUTO) 0.1 K/uL (0-0.4); EOSINOPHILS % (AUTO) 1.2 % (0.0-4.0); HEMATOCRIT 40.7 % (36-52); HEMOGLOBIN 13.2 g/dL (12.0-18.0); LYMPHOCYTES # (AUTO) 1.6 K/uL (2.0-11.5); LYMPHOCYTES % (AUTO) 15.4 % (20.5-51.1); MEAN CORPUSCULAR HEMOGLOBIN 31 pg (27-31); MEAN CORPUSCULAR HGB CONC 32 g/dL (33-37); MEAN CORPUSCULAR VOLUME 97 fL (80-94); MONOCYTES # (AUTO) 0.6 K/uL (0.8-1.0); MONOCYTES % (AUTO) 6.1 % (1.7-9.3); NEUTROPHILS # (AUTO) 7.8 K/uL (1.8-7.7); NEUTROPHILS % (AUTO) 76.2 % (42.2-75.2); PLATELET COUNT (AUTO) 231 K/uL (140-450); RED CELL DISTRIBUTION WIDTH 13.8 % (11.6-13.7); WHITE BLOOD COUNT (AUTO) 10.2 K/uL (4.8-10.8)
--- NOTE | 2016-10-28 19:23 | NUR ---
RECEIVED REPORT FROM VICENTA MCFARLANE.
[2016-10-28 19:28] LABS: ACETONE, SERUM NEGATIVE (NEGATIVE)
[2016-10-28 19:31] LABS: ANION GAP 14.1 (8-16); CALCIUM 8.9 mg/dL (8.5-10.1); CHLORIDE 99 mmol/L (98-107); CREATININE 0.9 mg/dL (0.6-1.3); GFR ARICAN-AMERICAN 112 mL/min (>90); GFR NON ARICAN-AMERICAN 93 mL/min (>90); GLUCOSE 282 mg/dL (74-106); POTASSIUM 4.1 mmol/L (3.5-5.1); SODIUM SERUM 136 mmol/L (136-145); UREA NITROGEN, BLOOD 11 mg/dL (7-18)
[2016-10-28 19:35] LABS: INR 1.1 (0.8-1.2); PARTIAL THROMBOPLASTIN TIME 26.3 secs (22-35.6); PROTHROMBIN TIME 10.8 secs (10.8-13.4)
--- NOTE | 2016-10-28 19:36 | NUR ---
PT BACK FROM CT SCAN.
[2016-10-28 19:37] LABS: ALANINE AMINOTRANSFERASE 23 U/L (12-78); ALBUMIN 3.2 g/dL (3.4-5.0); ALKALINE PHOSPHATASE 170 U/L (46-116); ASPARTATE AMINOTRANSFERASE 16 U/L (15-37); TOTAL BILIRUBIN 0.3 mg/dL (0.0-1.0); TOTAL PROTEIN, SERUM 7.7 g/dL (6.4-8.2)
[2016-10-28] MEDS ORDERED: ONDANSETRON 4 MG/2 ML VIAL IVP ONE (20:25)
[2016-10-28] MEDS ORDERED: MORPHINE SULFATE 4 MG/ML SYR IVP ONE (20:25)
[2016-10-28] MEDS ORDERED: ASPIRIN 325 MG TAB PO ONE (20:55)
[2016-10-28] MEDS ORDERED: HYDROmorphone 1 MG/ML AMP IVP ONE (21:40)
--- NOTE | 2016-10-28 22:03 | NUR ---
Patient will be admitted to care of DR MAYFIELD. Admited to TELEMETRY. Will go to room 113. Belongings list completed. Report to HAIM MCFARLANE.
[2016-10-28 22:05] VITALS: BP 120/50
--- NOTE | 2016-10-28 22:05 | NUR ---
Admitted from ER, with chief complaint of PARALYSIS, PT FAMILY AT BEDSIDE. 56 y/o ,Male, Cooperative, PT RESTING IN BED, AOX4, ABLE TO VERBALIZE NEEDS. PT C/O HEADACHE, SEE PAIN ASSESSMENT. WILL MEDICATE ORDERED. PT DENIES CP, SOB OR S/S OF ACUTE DISTRESS. PATIENT TRANSITION SPECIALIST IN PLACE. MORBID OBESITY NOTED. RIGHT AKA NOTED. LEFT LEG SURGICAL SCAR NOTED. IV ACCESS ASYMPTOMATIC, PATENT AND INTACT. SALINE LOCKED AT THIS TIME. oriented to call light, bed, phone,television, bathroom, smoking policy, visiting hours, procedures, ID bracelet on. Belongings list checked. DISCUSSED AND REVIEWED PLAN OF CARE WITH PT. PT VERBALIZES UNDERSTANDING. SAFETY MEASURES ENSURED. CALL LIGHT WITHIN REACH. WILL CONTINUE TO MONITOR.
[2016-10-28] MEDS ORDERED: DEXTROSE 50% 50 ML SYR IVP PRN (23:25)
[2016-10-28] MEDS ORDERED: DOCUSATE SODIUM 100 MG GELCAP PO PRN (23:30)
[2016-10-28] MEDS ORDERED: ACETAMINOPHEN 325 MG TAB PO PRN (23:30)
[2016-10-28] MEDS ORDERED: ONDANSETRON 4 MG/2 ML VIAL IVP PRN (23:30)
[2016-10-28] MEDS ORDERED: HYDROcodone/APAP 5/325 MG 1 TAB TAB PO PRN (23:35)
[2016-10-28] MEDS ORDERED: NACL 0.9% 500 ML IV SCH (23:40)
[2016-10-28] MEDS: ASPIRIN 81 MG TAB.CHEW PO SCH (23:40)
[2016-10-28] MEDS: ATORVASTATIN 20 MG TAB PO SCH (23:40)
[2016-10-29] VITALS: BP 123/65
--- NOTE | 2016-10-29 00:15 | NUR ---
ASPIRIN 81 MG HELD DUE TO ASPIRIN 325MG GIVEN IN THE ER. LIPITOR NOT GIVEN DUE TO MED NOT AVAILABLE AT THIS TIME. IV FLUIDS INFUSING WELL. CONDITION STABLE. SAFETY MEASURES ENSURED. CALL LIGHT WITHIN REACH.
[2016-10-29 00:18] LABS: CHOL/HDL RATIO 4.5 (1-4.5); MAGNESIUM 1.8 mg/dL (1.8-2.4); PHOSPHORUS 3.7 mg/dL (2.5-4.9); THYROID STIMULATING HORMONE 0.87 uIU/mL (0.34-3.76)
[2016-10-29 00:19] LABS: AMPHETAMINE, URINE NEGATIVE ng/ml (NEG <=1000); BARBITURATE, URINE NEGATIVE ng/ml (NEG <=200); BENZODIAZEPINE, URINE NEGATIVE ng/mL (NEG <=200); CANNABINOID, URINE NEGATIVE ng/mL (NEG <=50); COCAINE, URINE NEGATIVE ng/mL (NEG <=300); OPIATE, URINE POSITIVE ng/mL (NEG <=2000); PHENCYCLIDINE SCREEN,URINE NEGATIVE ng/mL (NEG <=25)
[2016-10-29] MEDS: INSULIN LISPRO SLIDING SCALE 100 UNITS/ML VIAL SUBQ PRN ×5 (00:45→20:44)
--- NOTE | 2016-10-29 00:45 | NUR ---
BLOOD SUGAR 253, ADMINISTERED 6UNITS INSULIN LISPRO PER SLIDING SCALE WITH EDUCATION. SNACKS PROVIDED. PT VERBALIZES UNDERSTANDING.
--- NOTE | 2016-10-29 00:46 | NUR ---
PT C/O HEADACHE. PT AGREED TO TAKE TYLENOL. TYLENOL ADMINISTERED WITH EDUCATION.
[2016-10-29 00:48] LABS: APPEARANCE,URINE CLEAR (CLEAR); BILIRUBIN,URINE NEGATIVE (NEGATIVE); BLOOD, URINE NEGATIVE (NEGATIVE); COLOR,URINE YELLOW (YELLOW); LEUKOCYTE ESTERASE ,URINE NEGATIVE (NEGATIVE); NITRITE, URINE NEGATIVE (NEGATIVE); PROTEIN,URINE TRACE (NEGATIVE); UGLUCOSE 2+ (NEGATIVE); UROBILINOGEN,URINE 0.2 EU/dL (0.2 - 1)
[2016-10-29 00:49] LABS: BACTERIA,URINE 1+ /HPF (None Seen); RBC,URINE 0-5 (RARE) /HPF (0-5); SQUAMOUS EPITHELIAL CELL,UR 0-3 (FEW) /LPF (0-3 (FEW)); WBC,URINE 0-5 (RARE) /HPF (0-5); YEAST,URINE Few /HPF (None Seen)
[2016-10-29 04:00] VITALS: BP 116/73
--- NOTE | 2016-10-29 04:00 | NUR ---
ALL NEEDS MET. CONDITION STABLE. SAFETY MEASURES ENSURED. CALL LIGHT WITHIN REACH.
[2016-10-29] MEDS: metroNIDAZOLE 250 MG TAB PO SCH ×3 (04:29→20:50)
[2016-10-29] MEDS: MORPHINE SULFATE 2 MG/ML SYR IVP PRN ×4 (04:29→20:57)
--- NOTE | 2016-10-29 04:30 | NUR ---
PT C/O PERSISTENT HEADACHE. SEE PAIN ASSESSMENT. MORPHINE ADMINISTERED ORDERED WITH EDUCATION. PT TOLERATED WELL. SAFETY MEASURES ENSURED. CALL LIGHT WITHIN REACH.
[2016-10-29] MEDS: NACL 0.9% 1,000 ML IV SCH ×2 (07:00→11:20)
[2016-10-29] MEDS: METOCLOPRAMIDE 10 MG TAB PO SCH ×4 (07:02→20:49)
[2016-10-29] MEDS: BLOOD GLUCOSE MONITORING 1 DEV DEV FS SCH ×4 (07:02→20:43)
[2016-10-29 07:30] LABS: ANION GAP 11.4 (8-16); BASOPHILS # (AUTO) 0.1 K/uL (0.00-0.22); CALCIUM 8.6 mg/dL (8.5-10.1); CARBON DIOXIDE 30.5 mmol/L (21-32); CREATININE 0.9 mg/dL (0.6-1.3); EOSINOPHILS # (AUTO) 0.1 K/uL (0-0.4); EOSINOPHILS % (AUTO) 0.8 % (0.0-4.0); HEMATOCRIT 38.8 % (36-52); HEMOGLOBIN 12.8 g/dL (12.0-18.0); LYMPHOCYTES # (AUTO) 1.7 K/uL (2.0-11.5); LYMPHOCYTES % (AUTO) 17.1 % (20.5-51.1); MEAN CORPUSCULAR HEMOGLOBIN 32 pg (27-31); MEAN CORPUSCULAR HGB CONC 33 g/dL (33-37); MEAN CORPUSCULAR VOLUME 97 fL (80-94); MONOCYTES # (AUTO) 0.9 K/uL (0.8-1.0); MONOCYTES % (AUTO) 9.4 % (1.7-9.3); NEUTROPHILS # (AUTO) 7.1 K/uL (1.8-7.7); NEUTROPHILS % (AUTO) 71.7 % (42.2-75.2); PLATELET COUNT (AUTO) 217 K/uL (140-450); POTASSIUM 3.9 mmol/L (3.5-5.1); RED BLOOD CELL COUNT(AUTO) 3.98 MIL/uL (4.20-6.10); RED CELL DISTRIBUTION WIDTH 13.9 % (11.6-13.7); WHITE BLOOD COUNT (AUTO) 9.9 K/uL (4.8-10.8)
--- NOTE | 2016-10-29 07:41 | NUR ---
RECEIVED REPORT FROM NIGHT NURSE, PT IS AAOX4, ON ROOM AIR, IV TO RIGHT CHEST 20G INFUSING WELL, SKIN INTACT, RIGHT AKA . INITIAL ASSESSMENT COMPLETED, REVIEWED PLAN OF CARE WITH PT, PT VERBALIZED UNDERSTANDING. ALL SAFETY PRECAUTIONS MET. CALL LIGHT WITHIN REACH. WILL CONTINUE TO MONITOR.
--- NOTE | 2016-10-29 07:41 | NUR ---
CONDITION STABLE. ENDORSED PLAN OF CARE TO AM NURSE.
[2016-10-29 07:49] LABS: ALBUMIN 3.1 g/dL (3.4-5.0)
[2016-10-29 08:00] VITALS: BP 111/69
[2016-10-29 08:09] LABS: PHENYTOIN (DILANTIN) 0.7 ug/ml (10.0-20.0)
[2016-10-29] MEDS: PHENYTOIN 100 MG CAPER PO SCH ×3 (08:27→16:18)
[2016-10-29] MEDS: LACTOBACILLUS RHAMNOSUS GG 1 EACH CAP PO SCH ×2 (08:28→20:50)
[2016-10-29] MEDS: PANTOPRAZOLE 40 MG TABEC PO SCH (08:28)
[2016-10-29] MEDS: ASPIRIN 81 MG TAB.CHEW PO SCH (08:28)
[2016-10-29] MEDS: DOCUSATE SODIUM 100 MG GELCAP PO SCH ×3 (08:28→21:00)
[2016-10-29] MEDS: MUPIROCIN 2% OINT 22 GM TUBE TP SCH (08:39)
[2016-10-29] MEDS: CHLORHEXADINE GLUC 2% CLOTH TP SCH (08:39)
[2016-10-29] MEDS: RIVAROXABAN 10 MG TAB PO SCH (08:39)
[2016-10-29] MEDS: ATORVASTATIN 20 MG TAB PO SCH (08:40)
--- NOTE | 2016-10-29 08:41 | NUR ---
DUE MEDICATIONS GIVEN, PT TOLERATED WELL. ALL NEEDS MET. CALL LIGHT WITHIN REACH. WILL CONTINUE TO MONITOR.
[2016-10-29] MEDS ORDERED: INSULIN ASPART 35 UNIT SUBQ SCH (09:00)
[2016-10-29] MEDS ORDERED: NON-FORMULARY ITEM (Omeprazole (Omeprazole) 20 MG) PO SCH (09:00)
[2016-10-29] MEDS ORDERED: NON-FORMULARY ITEM (Saccharomyces Boulardii* (Florastor*) 250 MG) PO SCH (09:00)
--- NOTE | 2016-10-29 09:51 | NUR ---
PATIENT HAS BEEN SCREENED AND CATEGORIZED HIGH NUTRITION RISK. PATIENT WILL BE SEEN WITHIN 1-2 DAYS OF ADMISSION. 10/29/16-10/30/[address]
--- NOTE | 2016-10-29 11:23 | NUR ---
DUE MEDICATIONS GIVEN, PT CURRENTLY SITTING ON WHEELCHAIR . ALL NEEDS MET. CALL LIGHT WITHIN REACH. WILL CONTINUE TO MONITOR.
[2016-10-29 12:00] VITALS: BP 138/80
--- NOTE | 2016-10-29 13:21 | NUR ---
CM NOTE INITIAL REVIEW SENT TO [facility] FAX# [phone] [place] PH# [phone]
--- NOTE | 2016-10-29 13:57 | NUR ---
CHECKED IN ON PT, ALL NEEDS MET. CALL LIGHT WITHIN REACH. WILL CONTINUE TO MONITOR.
[2016-10-29] MEDS ORDERED: KETOROLAC 30 MG/ML VIAL IVP SCH (15:55)
--- NOTE | 2016-10-29 15:59 | NUR ---
10/29/16 RD INITIAL ASSESSMENT COMPLETED PLEASE REFER TO NUTRITION ASSESSMENT UNDER CARE ACTIVITY FOR ESTIMATED NUTRITIONAL NEEDS. 1. CHANGE DIET TO 75 G CONSISTENT CARBOHYDRATE DIET 2. ADD SNACKS BID 3. RD TO FOLLOW-UP 3-5 DAYS; MODERATE RISK EDUAR DAVIS, JEAN CLAUDE
[2016-10-29 16:00] VITALS: BP 124/73
--- NOTE | 2016-10-29 16:22 | NUR ---
DUE MEDICATIONS GIVEN. PT TOLERATED WELL. ALL NEEDS MET. CALL LIGHT WITHIN REACH. WILL CONTINUE TO MONITOR.
--- NOTE | 2016-10-29 18:35 | NUR ---
PT C/O OF NAUSEA, MEDICATED PER MD ORDERS. ALL NEEDS MET. CALL LIGHT WITHIN REACH. WILL CONTINUE TO MONITOR.
--- NOTE | 2016-10-29 19:16 | NUR ---
ENDORSED PLAN OF CARE TO NIGHT NURSE, PT IN STABLE CONDITION.
--- NOTE | 2016-10-29 19:41 | NUR ---
RECEIVED REPORT FROM AM NURSE. PT RESTING IN BED, AOX4, ABLE TO VERBALIZE NEEDS. PT C/O HEADACHE, SEE PAIN ASSESSMENT. WILL MEDICATE ORDERED. PT DENIES CP, SOB, NAUSEA OR S/S OF ACUTE DISTRESS. CORE DIPPER IN PLACE. MORBID OBESITY NOTED. RIGHT AKA NOTED. LEFT LEG SURGICAL SCAR NOTED. IV ACCESS ASYMPTOMATIC, PATENT AND INTACT. SALINE LOCKED AT THIS TIME. DISCUSSED AND REVIEWED PLAN OF CARE WITH PT. PT VERBALIZES UNDERSTANDING. ALL NEEDS MET. SAFETY MEASURES ENSURED. CALL LIGHT WITHIN REACH. WILL CONTINUE TO MONITOR.
[2016-10-29 20:00] VITALS: BP 132/66
--- NOTE | 2016-10-29 20:40 | NUR ---
PT REFUSED COLACE DESPITE EDUCATION. ADMINISTERED MEDICATIONS WITH EDUCATION. PT VERBALIZES UNDERSTANDING AND TOLERATED MEDS WELL. ALL NEEDS MET. SAFETY MEASURES ENSURED. CALL LIGHT WITHIN REACH. WILL CONTINUE TO MONITOR.
[2016-10-29] MEDS ORDERED: INSULIN GLARGINE HUM REC ANLOG 45 UNIT SUBQ SCH (21:00)
[2016-10-29] MEDS ORDERED: INSULIN DETEMIR 100 UNITS/ML 10 ML VIAL SUBQ SCH (21:00)
[2016-10-30] VITALS: BP 118/65
--- NOTE | 2016-10-30 | NUR ---
CONDITION STABLE. ALL NEEDS MET. SAFETY MEASURES ENSURED. CALL LIGHT WITHIN REACH.
[2016-10-30] MEDS: MORPHINE SULFATE 2 MG/ML SYR IVP PRN ×4 (00:15→10:29)
[2016-10-30 04:00] VITALS: BP 139/81
[2016-10-30] MEDS: metroNIDAZOLE 250 MG TAB PO SCH ×2 (04:26→12:08)
--- NOTE | 2016-10-30 04:30 | NUR ---
ADMINISTERED DUE MEDICATION WITH EDUCATION. PT VERBALIZED UNDERSTANDING AND TOLERATED MED WELL. ALL NEEDS MET. CONDITION STABLE. SAFETY MEASURES ENSURED. CALL LIGHT WITHIN REACH.
[2016-10-30] MEDS: BLOOD GLUCOSE MONITORING 1 DEV DEV FS SCH ×2 (06:37→11:37)
[2016-10-30] MEDS: INSULIN LISPRO SLIDING SCALE 100 UNITS/ML VIAL SUBQ PRN ×2 (06:38→12:14)
[2016-10-30 06:44] LABS: BASOPHILS % (AUTO) 0.7 % (0.0-2.0); EOSINOPHILS # (AUTO) 0.1 K/uL (0-0.4); EOSINOPHILS % (AUTO) 1.1 % (0.0-4.0); HEMATOCRIT 37.1 % (36-52); HEMOGLOBIN 12.5 g/dL (12.0-18.0); LYMPHOCYTES # (AUTO) 1.5 K/uL (2.0-11.5); LYMPHOCYTES % (AUTO) 20.6 % (20.5-51.1); MEAN CORPUSCULAR HEMOGLOBIN 33 pg (27-31); MEAN CORPUSCULAR HGB CONC 34 g/dL (33-37); MEAN CORPUSCULAR VOLUME 97 fL (80-94); MONOCYTES # (AUTO) 0.7 K/uL (0.8-1.0); MONOCYTES % (AUTO) 9.4 % (1.7-9.3); NEUTROPHILS # (AUTO) 4.7 K/uL (1.8-7.7); NEUTROPHILS % (AUTO) 68.2 % (42.2-75.2); PLATELET COUNT (AUTO) 207 K/uL (140-450); RED BLOOD CELL COUNT(AUTO) 3.81 MIL/uL (4.20-6.10); RED CELL DISTRIBUTION WIDTH 14.1 % (11.6-13.7)
[2016-10-30 06:59] LABS: CALCIUM 8.5 mg/dL (8.5-10.1); CARBON DIOXIDE 27.8 mmol/L (21-32); CREATININE 0.8 mg/dL (0.6-1.3); POTASSIUM 3.8 mmol/L (3.5-5.1)
[2016-10-30] MEDS: PANTOPRAZOLE 40 MG TABEC PO SCH (07:03)
[2016-10-30] MEDS: METOCLOPRAMIDE 10 MG TAB PO SCH ×2 (07:03→12:07)
[2016-10-30 07:19] LABS: MAGNESIUM 1.7 mg/dL (1.8-2.4); PHENYTOIN (DILANTIN) 2.4 ug/ml (10.0-20.0); PHOSPHORUS 3.7 mg/dL (2.5-4.9)
--- NOTE | 2016-10-30 07:26 | NUR ---
ENDORSED PLAN OF CARE TO AM NURSE. CONDITION STABLE.
--- NOTE | 2016-10-30 07:26 | NUR ---
RECEIVED REPORT FROM NIGHT NURSE, PT IS AAOX4, ON ROOM AIR, IV TO RIGHT CHEST 20G SALINE LOCK, SKIN INTACT, RIGHT AKA. NO S/S OF DISTRESS NOTED. INITIAL ASSESSMENT COMPLETED, REVIEWED PLAN OF CARE WITH PT, PT VERBALIZED UNDERSTANDING. ALL SAFETY PRECAUTIONS MET. CALL LIGHT WITHIN REACH. WILL CONTINUE TO MONITOR.
[2016-10-30 07:55] VITALS: BP 136/74
[2016-10-30] MEDS ORDERED: [UNRECOGNIZED DRUG - OTHER] IV SCH ×3 (08:45)
[2016-10-30] MEDS ORDERED: SODIUM CHLORIDE 0.9% IV SCH ×3 (08:45)
[2016-10-30] MEDS ORDERED: PHENYTOIN IV SCH ×4 (08:45→10:30)
[2016-10-30] MEDS ORDERED: KETOROLAC 30 MG/ML VIAL IVP SCH (09:16)
[2016-10-30] MEDS: PHENYTOIN 100 MG CAPER PO SCH ×2 (09:44→12:07)
[2016-10-30] MEDS: DOCUSATE SODIUM 100 MG GELCAP PO SCH (09:44)
[2016-10-30] MEDS: LACTOBACILLUS RHAMNOSUS GG 1 EACH CAP PO SCH (09:44)
[2016-10-30] MEDS: ATORVASTATIN 20 MG TAB PO SCH (09:44)
[2016-10-30] MEDS: ASPIRIN 81 MG TAB.CHEW PO SCH (09:44)
[2016-10-30] MEDS: RIVAROXABAN 10 MG TAB PO SCH (09:52)
[2016-10-30] MEDS: CHLORHEXADINE GLUC 2% CLOTH TP SCH (09:52)
[2016-10-30] MEDS: MUPIROCIN 2% OINT 22 GM TUBE TP SCH (09:52)
--- NOTE | 2016-10-30 09:53 | NUR ---
DUE MEDICATIONS GIVEN. NO S/S OF DISTRESS NOTED. ALL NEEDS MET. CALL LIGHT WITHIN REACH. WILL CONTINUE TO MONITOR.
[2016-10-30] MEDS ORDERED: NACL 0.9% IV SCH (10:30)
[2016-10-30] MEDS ORDERED: MAG SULF 2000 MG/WATER PREMIX 50 ML IV SCH (11:00)
--- NOTE | 2016-10-30 11:28 | NUR ---
CM NOTE CONCURRENT REVIEW SENT TO [facility] FAX# [phone] [place] PH# [phone]
[2016-10-30 12:00] VITALS: BP 125/75
--- NOTE | 2016-10-30 12:10 | NUR ---
DUE MEDICATIONS GIVE, PT TOLERATED WELL. ALL NEEDS MET, FATHER AT BEDSIDE. WILL CONTINUE TO MONITOR.
[2016-10-30] MEDS ORDERED: MAGNESIUM OXIDE 400 MG TAB PO SCH (13:15)
--- NOTE | 2016-10-30 13:58 | NUR ---
DUE MEDICATIONS GIVEN, FAMILY AT BEDSIDE, ALL NEEDS MET. CALL LIGHT WITHIN REACH. WILL CONTINUE TO MONITOR.
[2016-10-30] MEDS ORDERED: ATOR20TA40 PO (14:07)
[2016-10-30] MEDS ORDERED: METR250T2 PO (14:07)
[2016-10-30] MEDS ORDERED: LACT10CA PO (14:07)
[2016-10-30] MEDS ORDERED: PHEN100C3 PO (14:07)
[2016-10-30] MEDS ORDERED: ASPI325T49 PO (14:07)
[2016-10-30] MEDS ORDERED: RIVA20TA PO (14:09)
--- NOTE | 2016-10-30 14:54 | NUR ---
DISCUSSED DISCHARGE PLAN WITH PT, PT VERBALIZED UNDERSTANDING. FAMILY AT BEDSIDE.
--- NOTE | 2016-10-30 15:13 | NUR ---
PT SIGNED ALL DISCHARGE PAPERWORK, DISCHARGE EDUCATION GIVEN, FOLLOW UP INFORMATION GIVE, PT VERBALIZED UNDERSTANDING, IV REMOVED TIP INTACT, ALL PERSONAL BELONGINGS WITH PT.
--- NOTE | 2016-10-30 15:21 | NUR ---
PT WAS WHEELED OUT TO FRONT LOBBY IN STABLE CONDITION.
[2016-10-31] MEDS ORDERED: ASPIRIN 325 MG TAB PO SCH (09:00)
== END 2016-10-30 15:23 | disposition home or self-care (01) | DRG 100 ==
LOC: MED 17:58 → MTU 21:35
PROVIDERS: ADMIT Family Medicine; ATTEND Family Medicine
DX: G40.909 Epilepsy, unspecified, not intractable, without status epilepticus (principal); N17.0 Acute kidney failure with tubular necrosis; E44.0 Moderate protein-calorie malnutrition; G90.9 Disorder of the autonomic nervous system, unspecified; G43.909 Migraine, unspecified, not intractable, without status migrainosus; E11.65 Type 2 diabetes mellitus with hyperglycemia; E66.01 Morbid (severe) obesity due to excess calories; K44.9 Diaphragmatic hernia without obstruction or gangrene; E11.51 Type 2 diabetes mellitus with diabetic peripheral angiopathy without gangrene; J45.909 Unspecified asthma, uncomplicated; I70.209 Unspecified atherosclerosis of native arteries of extremities, unspecified extremity; I25.10 Atherosclerotic heart disease of native coronary artery without angina pectoris; I65.21 Occlusion and stenosis of right carotid artery; Z89.611 Acquired absence of right leg above knee; Z88.1 Allergy status to other antibiotic agents; Z88.0 Allergy status to penicillin; Z91.030 Bee allergy status; Z79.4 Long term (current) use of insulin; Z79.899 Other long term (current) drug therapy; Z85.9 Personal history of malignant neoplasm, unspecified; Z86.718 Personal history of other venous thrombosis and embolism; Z86.711 Personal history of pulmonary embolism; Z87.820 Personal history of traumatic brain injury; Z68.35 Body mass index [BMI] 35.0-35.9, adult; Z71.3 Dietary counseling and surveillance
CPT/HCPCS: 36415; 70450; 71010; 80048; 80053; 80185; 80305; 81001; 82009; 82040; 82150; 82948; 83036; 83605; 83690; 83735; 83880; 84100; 84443; 84484; 85025; 85610; 85730; 86886; 86900; 86901; 87081; 87086; 93005; 93880; 93925; 93970; 96374; 96375; 99285; J1165; J1170; J1815; J1885; J2270; J2405; J7030; J8597; Q0092

== ENCOUNTER 2016-10-31 14:09 | Emergency (ER) | payer OTHER ==
[~2016-10-31] VITALS: Ht 185.4 cm; Wt 122.0 kg
[~2016-10-31 14:09] MED LIST changes: -ACET-2869 PO; +ASPI325T49 PO; +ATOR20TA40 PO; -BACTO TP; -DOCU-264 PO; -IMI50 PO; +LACT10CA PO; +PHEN100C3 PO; -PHEN100C4 PO; -SACC250C4 PO
[2016-10-31 14:49] VITALS: BP 132/70
--- NOTE | 2016-10-31 14:51 | NUR ---
Patient transferred to bed 5 via personal wheelchair. RN evaluating patient at bedside.
--- NOTE | 2016-10-31 14:57 | NUR ---
Dr. Chakraborty evaluating patient at bedside.
--- NOTE | 2016-10-31 15:20 | NUR ---
56/M C/O FATIGUE, INCREASED SLEEPINESS AND DIFFICULTY BREATHING WITH LYING FLAT. RESPIRATIONS EVEN AND UNLABORED. O2 SAT 95% ON RA. RR 20. RIGHT UPPER LOBES CLEAR, LEFT UPPER LOBES DIMINISHED. NO COUGH NOTED. DENIES CHEST PAIN. DENIES PAIN. DENIES N/V/D. PT STATES HE WAS ADMITTED 10/28/16 FOR "A BLOOD CLOT IN MY JUGULAR." PT STATES HE WAS D/C YESTERDAY FROM HERE. PRIOR TO BEING D/C PT STATES "THEY GAVE ME A DOSE OF DILANTIN FOR MY SEIZURES AND THEN I STARTED TO FEEL REALLY TIRED." AOX4, CLEAR SPEECH. PT IS W/C BOUND, USES AN ELECTRICAL W/C. PT IS ABLE TO CHANGE POSITIONS FROM W/C TO BED W/O ASSISTANCE. RIGHT AKA NOTED. VSS AT THIS TIME. PT ON PURCHASE ANALYST, NSR, PULSE OXIMETRY, AND BLOOD PRESSURE MONITORING.
[2016-10-31 16:38] LABS: BASOPHILS # (AUTO) 0.1 K/uL (0.00-0.22); BASOPHILS % (AUTO) 0.9 % (0.0-2.0); EOSINOPHILS # (AUTO) 0.2 K/uL (0-0.4); EOSINOPHILS % (AUTO) 1.9 % (0.0-4.0); HEMATOCRIT 38.3 % (36-52); LYMPHOCYTES # (AUTO) 1.5 K/uL (2.0-11.5); LYMPHOCYTES % (AUTO) 13.7 % (20.5-51.1); MEAN CORPUSCULAR HEMOGLOBIN 32 pg (27-31); MEAN CORPUSCULAR HGB CONC 34 g/dL (33-37); MEAN CORPUSCULAR VOLUME 95 fL (80-94); MONOCYTES # (AUTO) 0.9 K/uL (0.8-1.0); NEUTROPHILS # (AUTO) 8.6 K/uL (1.8-7.7); NEUTROPHILS % (AUTO) 75.5 % (42.2-75.2); PLATELET COUNT (AUTO) 260 K/uL (140-450); RED BLOOD CELL COUNT(AUTO) 4.03 MIL/uL (4.20-6.10); WHITE BLOOD COUNT (AUTO) 11.3 K/uL (4.8-10.8)
[2016-10-31 16:47] LABS: INR 1.2 (0.8-1.2); PARTIAL THROMBOPLASTIN TIME 27.5 secs (22-35.6); PROTHROMBIN TIME 10.9 secs (10.8-13.4)
--- NOTE | 2016-10-31 16:51 | NUR ---
FAMILY AT BEDSIDE.
[2016-10-31 16:58] LABS: ALBUMIN 3.3 g/dL (3.4-5.0); ANION GAP 13.4 (8-16); CALCIUM 8.9 mg/dL (8.5-10.1); CARBON DIOXIDE 26.5 mmol/L (21-32); CREATININE 0.8 mg/dL (0.6-1.3); POTASSIUM 3.9 mmol/L (3.5-5.1); TOTAL BILIRUBIN 0.4 mg/dL (0.0-1.0); TOTAL PROTEIN, SERUM 7.8 g/dL (6.4-8.2)
--- NOTE | 2016-10-31 17:16 | NUR ---
Dr. Chakraborty re-evaluating patient at bedside.
[2016-10-31 17:45] VITALS: BP 104/62
--- NOTE | 2016-10-31 17:45 | NUR ---
Patient discharged with v/s stable. Written and verbal after care instructions given and explained. Patient verbalized understanding. Patient transferred self to w/c and w/c home. Father outside in lobby. All questions addressed prior to discharge. Advised to follow up with PMD.
== END 2016-10-31 17:45 | disposition home or self-care (01) ==
LOC: MED 14:09
DX: R06.00 Dyspnea, unspecified (principal); J45.909 Unspecified asthma, uncomplicated; Z98.890 Other specified postprocedural states; Z88.6 Allergy status to analgesic agent; Z88.0 Allergy status to penicillin; Z79.82 Long term (current) use of aspirin; Z79.4 Long term (current) use of insulin; Z79.899 Other long term (current) drug therapy
CPT/HCPCS: 36415; 71010; 80053; 80185; 83880; 84484; 85025; 85379; 85610; 85730; 93005; 99285; Q0092

== ENCOUNTER 2016-12-15 12:00 | Emergency (ER) | payer OTHER ==
[~2016-12-15] VITALS: Ht 182.9 cm; Wt 130.6 kg
[2016-12-15 13:14] VITALS: BP 111/75
--- NOTE | 2016-12-15 14:30 | NUR ---
PATIENT LEFT WITHOUT BEING SEEN BY DR. KEATING. NO FURTHER CARE PROVIDED FOR PATIENT.
== END 2016-12-15 14:30 | disposition left against medical advice (07) ==
LOC: MED 12:00
DX: M79.672 Pain in left foot (principal); Z53.21 Procedure and treatment not carried out due to patient leaving prior to being seen by health care provider
CPT/HCPCS: 73630; 99281